=== PATIENT | female | born 1935 | race Caucasian/White ===

== ENCOUNTER 2017-03-08 14:30 | Inpatient (IN) ==
[2017-03-09] MEDS ORDERED: *HR* OxyCODONE Immed Rel 5 MG TABLET PO PRN (15:06)
--- NOTE | 2017-03-09 15:32 | Internal Med History&Physical ---
Date of Encounter: 03/09/17 Time of Encounter: 15:29 Assessment and Plan (1) Status post total hip replacement, left Current visit: No Status: Acute oxycodone increased to 10mg every 4 hrs as needed. will monitor for effectiveness. PT/OT as scheduled. (2) HTN (hypertension) Current visit: No Status: Chronic controlled with losartan. monitor BP Qualifiers: Hypertension type: essential hypertension Qualified Code(s): I10 - Essential (primary) hypertension (3) Constipation Current visit: Yes Status: Acute will order miralax and colace. Qualifiers: Constipation type: slow transit constipation Qualified Code(s): K59.01 - Slow transit constipation Internal Medicine - H&P: HPI Chief complaint: s/p left total hip replacement Admitted From: Home Plans for Post Hospital Care: Home History of present illness: Ms. Young is a 82 year old female presents to rehab unit for PT/OT after having left total knee replacement. daughter at bedside. plans to live with daughter after discharge. increased pain with movement to left hip. will increase oxycodone. c/o constipation. last BM 3 days ago. PMHx: arthritis of left hip, HTN. Past Med Surg Social Fam HX - Past Medical History Medical history: arthritis, hyperlipidemia, hypertension Psychiatric history: no psych history - Past Surgical History Surgical History: hysterectomy - Social History Smoking Status: Never smoker Smokeless Tobacco Status: No Alcohol use: occasionally Drug use: none Internal Medicine - H&P: Meds Aspirin Enteric Coated [Aspirin EC] 325 mg PO DAILY 21 Days #21 tablet. [Rx] Losartan/Hydrochlorothiazide [Hyzaar 100-12.5 Tablet] 1 tab PO QAM 03/06/17 [ History] [place]-3S/Dha/Epa/Fish Oil [Fish Oil 1,200 mg Softgel] 1 cap PO DAILY 03/06/17 [ History] OxyCODONE Immed Rel [Roxicodone 5 MG] 5 mg PO Q4HR PRN 03/09/17 [History] 3 Allergy/AdvReac Type Severity Reaction Status Date / Time ciprofloxacin [From Cipro] Allergy Swelling Verified 03/06/17 11:39 of Lip/Tongue/Throat Penicillins Allergy Rash Verified 03/06/17 11:39 Sulfa (Sulfonamide Allergy Vomiting Verified 03/06/17 11:39 Antibiotics) All Systems PM: A 10-system review of systems was performed and is negative for pertinent findings except as documented above in the HPI. - Constitutional Constitutional: no chills, no fever(s), no night sweats - EENT Eyes: no change in vision, no discharge, no pain, no photophobia Ears: no ear discharge, no ear pain, no tinnitus Nose, mouth and throat: no dysphagia, no nasal discharge, no neck pain, no sore throat - Cardiovascular Cardiovascular ROS IM: no chest pain, no diaphoresis, no dyspnea, no lightheadedness, no palpitations, no syncope - Respiratory Respiratory: no cough, no dyspnea, no wheezing, no excessive phlegm production - Gastrointestinal Gastrointestinal: no abdominal pain, no diarrhea, no hematemesis, no hematochezia, no melena, no nausea, no vomiting - Genitourinary Genitourinary: no change in urinary stream, no dysuria, no flank pain, no hematuria - Musculoskeletal Musculoskeletal ROS IM: no numbness, no tingling - Integumentary Integumentary IM: no rash, no unusual bruising - Neurological Neurological ROS: no confusion, no convulsions, no focal weakness, no numbness, no tingling, no tremor(s) - Hematologic/Lymphatic Hematologic/Lymphatic: no easy bruising - Constitutional Vitals: Temp Pulse Resp BP Pulse Ox 98.1 F 114 18 127/74 98 03/09/17 13:46 03/09/17 13:46 03/09/17 13:46 03/09/17 13:46 03/09/17 13:46 General appearance: Present: A&O X 3, pleasant, no acute distress, answers questions appropriately - Head Head exam: Present: atraumatic, normocephalic - Eye Eye exam: Present: PERRL, conjuntiva pink, sclera anicteric Pupils: Present: PERRL - Neck Neck exam general surgery: Present: supple, trachea midline. Absent: lymphadenopathy - Respiratory Respiratory exam: Present: CTAB. Absent: accessory muscle use, rales, rhonchi, wheezes - Cardiovascular Cardiovascular exam: Present: RRR, +S1, +S2. Absent: diastolic murmur, gallop, rubs, systolic murmur - GI/Abdominal GI/Abdominal exam: Present: normal bowel sounds, soft, no peritoneal signs. Absent: distended, tenderness - Extremities Exam Extremities exam: Present: warm, radial pulses palpable and symmetrical. Absent : calf tenderness, cyanotic, pedal edema Additional comments: left hip, incision well approximated. no drainage. no signs of infection. - Neurological Exam Neurological exam: Present: CN II-XII intact, oriented X3, no focal deficits. Absent: pronater drift, facial droop, speech deficit - Skin Skin exam: Present: dry, intact
[2017-03-09] MEDS: *HR* OxyCODONE Immed Rel 5 MG TABLET PO PRN (20:44)
[2017-03-10] MEDS: *HR* OxyCODONE Immed Rel 5 MG TABLET PO PRN ×5 (01:07→20:44)
[2017-03-10 06:48] LABS: Basophils % 0.3 %; Eosinophils # 0.1 K/mcL (0.0-0.6); Eosinophils % 0.7 %; Hematocrit 27.9 % (35.3-44.9); Hemoglobin 9.2 g/dL (11.5-15.4); Immature Granulocytes % 0.6 % (0-4); Lymphocytes % 22.1 %; Mean Corpuscular Hemoglobin 29.4 pg (28.0-33.3); Mean Corpuscular Volume 89.1 fL (83.0-100.0); Mean Platelet Volume 9.7 fL (9.4-12.4); Monocytes # 1.1 K/mcL (0.0-1.3); Monocytes % 12.2 %; Neutrophils # 5.8 K/mcL (1.6-8.9); Platelet Count 270 K/mcL (140-400); Red Blood Count 3.13 M/mcL (3.82-4.97); Red Cell Distribution Width 13.3 % (11.5-14.5); Segmented Neutrophils % 64.1 %
[2017-03-10 06:55] LABS: BUN/Creatinine Ratio 30 (6-26); Blood Urea Nitrogen 13 mg/dL (7-20); Calcium 8.6 mg/dL (8.6-10.8); Carbon Dioxide 30 mEq/L (19-29); Chloride 103 mEq/L (98-109); Glucose 92 mg/dL (70-99); Osmolality,Calculated 294 (280-300); Potassium 3.4 mEq/L (3.5-4.5); Sodium 142 mEq/L (136-145); eGFR For African Americans > 60 (> 60); eGFR For Non-African Americans > 60 (> 60)
[2017-03-10] MEDS: *HR* Enoxaparin 40 MG/0.4 ML SYRINGE SQ SCH (07:37)
[2017-03-10] MEDS: hydroCHLOROthiazide 25 MG TABLET PO SCH (08:33)
[2017-03-10] MEDS: Aspirin Enteric Coated 325 MG Tablet PO SCH (08:34)
[2017-03-10] MEDS: (Omega-3s/Dha/Epa/Fish Oil [Fish Oil 1,200 Mg Softgel PO SCH (08:35)
[2017-03-10] MEDS ORDERED: NON-FORMULARY MEDICATION 1 EACH EACH (Losartan/Hydrochlorothiazide [Hyzaar 100-12.5 Tablet PO SCH (09:00)
--- NOTE | 2017-03-10 12:04 | Internal Med Progress Note ---
Date of Encounter: 03/10/17 Time of Encounter: 12:02 - Assessment and plan (1) Status post total hip replacement, left Current Visit: No Status: Acute Assessment and plan: Surgical wounds appear intact and healing well with no infectious process noted. No limits noted to ROM or deformity to hip. Pt to continue on theapy. Pain well managed with oral meds. (2) HTN (hypertension) Current Visit: No Status: Chronic Assessment and plan: VS remains stable. Will continue on current meds. Qualifiers: Hypertension type: essential hypertension Qualified Code(s): I10 - Essential (primary) hypertension (3) Constipation Current Visit: Yes Status: Acute Assessment and plan: Pt c/o no BM over the last several days. Will give a Dulcolax supp now and increase her daily scheduled laxatives. Qualifiers: Constipation type: slow transit constipation Qualified Code(s): K59.01 - Slow transit constipation - Time Spent With Patient less than 15 minutes - Subjective Interval history: Patient appears relaxed and denies any current issues. States that her pain is tolerable with current pain meds. Denies any dyspnea. Denies any numbness or tingling to left leg - Constitutional Vitals: Temp Pulse Resp BP Pulse Ox 98.3 F 65 16 115/57 96 03/10/17 11:55 03/10/17 11:55 03/10/17 11:55 03/10/17 11:55 03/10/17 11:55 General appearance: Present: A&O X 3, pleasant, no acute distress, answers questions appropriately - Head Head exam: Present: atraumatic, normocephalic - Neck Neck exam general surgery: Present: supple, trachea midline. Absent: lymphadenopathy - Respiratory Respiratory exam: Present: CTAB. Absent: accessory muscle use, rales, rhonchi, wheezes - Cardiovascular Cardiovascular exam: Present: RRR, +S1, +S2. Absent: diastolic murmur, gallop, rubs, systolic murmur - GI/Abdominal GI/Abdominal exam: Present: normal bowel sounds, soft, no peritoneal signs. Absent: distended, tenderness - Extremities Exam Extremities exam: Present: normal capillary refill, warm, radial pulses palpable and symmetrical. Absent: calf tenderness, cyanotic, pedal edema Additional comments: left hip surgical incisions appear dry and intact. Distal cap refill is <3sec. Left leg is warm and without edema. - Neurological Exam Neurological exam: Present: CN II-XII intact, oriented X3, no focal deficits. Absent: pronater drift, facial droop, speech deficit - Skin Skin exam: Present: dry, intact Internal Medicine: Result - Labs CBC & Chem 7: 03/10/17 06:20 03/10/17 06:20 Labs: Short CBC 03/10/17 Range/Units 06:20 WBC 9.0 (4.3-11.1) K/mcL Hgb 9.2 L (11.5-15.4) g/dL Hct 27.9 L (35.3-44.9) % Plt Count 270 (140-400) K/mcL Neutrophils # 5.8 (1.6-8.9) K/mcL BMP 03/10/17 06:20 Sodium 142 Potassium 3.4 L Chloride 103 Carbon Dioxide 30 H BUN 13 Creatinine 0.43 L Glucose 92 Calcium 8.6 Consult Discharge Plan - Plan Referrals: Akin Seay, SCHOOL RESOURCE OFFICER [Primary Care Provider] -
[2017-03-10] MEDS: Sennosides 8.6 MG TABLET PO SCH (20:44)
[2017-03-11] MEDS: *HR* OxyCODONE Immed Rel 5 MG TABLET PO PRN ×4 (04:47→23:00)
[2017-03-11] MEDS: *HR* Enoxaparin 40 MG/0.4 ML SYRINGE SQ SCH (04:47)
[2017-03-11] MEDS: Aspirin Enteric Coated 325 MG Tablet PO SCH (09:13)
[2017-03-11] MEDS: Sennosides 8.6 MG TABLET PO SCH ×2 (09:13→23:00)
[2017-03-11] MEDS: hydroCHLOROthiazide 25 MG TABLET PO SCH (09:13)
[2017-03-11] MEDS: (Omega-3s/Dha/Epa/Fish Oil [Fish Oil 1,200 Mg Softgel PO SCH (09:14)
--- NOTE | 2017-03-11 11:26 | Internal Med Progress Note ---
Date of Encounter: 03/11/17 Time of Encounter: 11:24 - Assessment and plan (1) HTN (hypertension) Current Visit: No Status: Chronic Assessment and plan: - VS remains stable. - Will continue on current meds. Qualifiers: Hypertension type: essential hypertension Qualified Code(s): I10 - Essential (primary) hypertension (2) Status post total hip replacement, left Current Visit: No Status: Acute Assessment and plan: -Surgical wounds appear intact and healing - No limits noted to ROM or deformity to hip. - Pain well managed with oral meds and lidocain patch - PT/OT for at least couple of weeks (3) Constipation Current Visit: Yes Status: Acute Assessment and plan: - most likely secondary to narcotic use - Hypokalemia, mild can also complicate bowel transition - Reordered BMP, to check K and would supplement as needed - Suppositories will be given today along with any need to perform enema Qualifiers: Constipation type: slow transit constipation Qualified Code(s): K59.01 - Slow transit constipation (4) Hypokalemia Current Visit: Yes Status: Acute Assessment and plan: - unknown etiology, possible medication related, no GI loss - Recheck and supplement as needed - Time Spent With Patient 25 - 35 minutes - Subjective Interval history: pt had no complaints and reported that her left hip pain is very tolerable. She hasn't had a BM sin Monday now, but feels lots of activity in the abd. Apatite is intact, and indicated it was excelent. No SOB, no issues with urination and no JENNINGS. Has family involved and okay spending nereyda in rehab - Constitutional Vitals: Temp Pulse Resp BP Pulse Ox 98.4 F 93 16 124/69 95 03/11/17 07:27 03/11/17 07:27 03/10/17 19:20 03/11/17 07:27 03/11/17 07:27 General appearance: Present: A&O X 3, pleasant, no acute distress, answers questions appropriately - Head Head exam: Present: atraumatic, normocephalic - Eye Eye exam: Present: PERRL, conjuntiva pink, sclera anicteric Pupils: Present: PERRL - Neck Neck exam general surgery: Present: supple, trachea midline. Absent: lymphadenopathy - Respiratory Respiratory exam: Present: CTAB. Absent: accessory muscle use, rales, rhonchi, wheezes - Cardiovascular Cardiovascular exam: Present: RRR, +S1, +S2. Absent: diastolic murmur, gallop, rubs, systolic murmur - GI/Abdominal GI/Abdominal exam: Present: normal bowel sounds, soft, no peritoneal signs. Absent: distended, tenderness - Extremities Exam Extremities exam: Present: warm, radial pulses palpable and symmetrical. Absent : calf tenderness, cyanotic, pedal edema Additional comments: Left hip incision appeared intact, and dry. No signs of erythema - Neurological Exam Neurological exam: Present: no focal deficits. Absent: pronater drift, facial droop, speech deficit - Skin Skin exam: Present: dry, intact Internal Medicine: Result - Labs CBC & Chem 7: 03/10/17 06:20 03/10/17 06:20 Consult Discharge Plan - Plan Referrals: Akin Seay DRIP MOLDER [Primary Care Provider] -
[2017-03-11] MEDS: Bisacodyl 10 MG RECTAL SUPPOSITORY RC PRN (11:36)
[2017-03-11 15:03] LABS: Hematocrit 28.1 % (35.3-44.9); Hemoglobin 9.1 g/dL (11.5-15.4)
[2017-03-11 16:07] LABS: BUN/Creatinine Ratio 30 (6-26); Blood Urea Nitrogen 16 mg/dL (7-20); Calcium 8.5 mg/dL (8.6-10.8); Carbon Dioxide 32 mEq/L (19-29); Chloride 103 mEq/L (98-109); Glucose 105 mg/dL (70-99); Osmolality,Calculated 296 (280-300); Potassium 3.6 mEq/L (3.5-4.5); Sodium 142 mEq/L (136-145); eGFR For African Americans > 60 (> 60); eGFR For Non-African Americans > 60 (> 60)
[2017-03-12] MEDS: *HR* Enoxaparin 40 MG/0.4 ML SYRINGE SQ SCH (06:00)
[2017-03-12] MEDS: Aspirin Enteric Coated 325 MG Tablet PO SCH (09:04)
[2017-03-12] MEDS: hydroCHLOROthiazide 25 MG TABLET PO SCH (09:04)
--- NOTE | 2017-03-12 11:01 | Internal Med Progress Note ---
Date of Encounter: 03/12/17 Time of Encounter: 10:59 - Assessment and plan (1) HTN (hypertension) Current Visit: No Status: Chronic Assessment and plan: - VS remains stable. - Will continue on current meds. Qualifiers: Hypertension type: essential hypertension Qualified Code(s): I10 - Essential (primary) hypertension (2) Status post total hip replacement, left Current Visit: No Status: Acute Assessment and plan: -Surgical wounds appear intact and healing - No limits noted to ROM or deformity to hip. - Pain well managed with oral meds and lidocain patch - PT/OT for at least couple of weeks (3) Constipation Current Visit: Yes Status: Acute Assessment and plan: - most likely secondary to narcotic use, having BMs now after suppositories - Hypokalemia resolved Qualifiers: Constipation type: slow transit constipation Qualified Code(s): K59.01 - Slow transit constipation (4) Hypokalemia Current Visit: Yes Status: Acute Assessment and plan: - unknown etiology, possible medication related - Recheck showed 3.6, resolved - Time Spent With Patient less than 15 minutes - Subjective Interval history: pt had no complaints and reported that her left hip pain is very tolerable. - BM yesterday - Apatite is intact, and indicated it was excellent. - No SOB, no issues with urination and no JENNINGS. - Has family involved and okay spending nereyda in rehab Met dtr that was interested in hiring some help for at least three days to check on her mother - Constitutional Vitals: Temp Pulse Resp BP Pulse Ox 98.2 F 92 16 118/63 100 03/11/17 19:00 03/11/17 19:00 03/11/17 19:00 03/11/17 19:00 03/11/17 19:00 General appearance: Present: pleasant, no acute distress, answers questions appropriately - Head Head exam: Present: atraumatic, normocephalic - Eye Eye exam: Present: PERRL, conjuntiva pink, sclera anicteric Pupils: Present: PERRL - Neck Neck exam general surgery: Present: supple, trachea midline. Absent: lymphadenopathy - Respiratory Respiratory exam: Present: CTAB. Absent: accessory muscle use, rales, rhonchi, wheezes - Cardiovascular Cardiovascular exam: Present: RRR, +S1, +S2. Absent: diastolic murmur, gallop, rubs, systolic murmur - GI/Abdominal GI/Abdominal exam: Present: normal bowel sounds, soft, no peritoneal signs. Absent: distended, tenderness - Extremities Exam Extremities exam: Present: warm, radial pulses palpable and symmetrical. Absent : calf tenderness, cyanotic, pedal edema - Neurological Exam Neurological exam: Present: CN II-XII intact, oriented X3, no focal deficits. Absent: pronater drift, facial droop, speech deficit - Skin Skin exam: Present: dry, intact Internal Medicine: Result - Labs CBC & Chem 7: 03/11/17 14:50 03/11/17 14:50 Labs: Short CBC 03/11/17 Range/Units 14:50 Hgb 9.1 L (11.5-15.4) g/dL Hct 28.1 L (35.3-44.9) % BMP 03/11/17 14:50 Sodium 142 Potassium 3.6 Chloride 103 Carbon Dioxide 32 H BUN 16 Creatinine 0.53 L Glucose 105 H Calcium 8.5 L Consult Discharge Plan - Plan Referrals: Akin Seay, CIVIL PROCESS SERVER [Primary Care Provider] -
[2017-03-12] MEDS: *HR* OxyCODONE Immed Rel 5 MG TABLET PO PRN ×3 (11:08→21:35)
[2017-03-12] MEDS: Sennosides 8.6 MG TABLET PO SCH ×2 (13:24→21:34)
[2017-03-12] MEDS: (Omega-3s/Dha/Epa/Fish Oil [Fish Oil 1,200 Mg Softgel PO SCH (13:24)
[2017-03-13] MEDS: *HR* Enoxaparin 40 MG/0.4 ML SYRINGE SQ SCH (04:53)
[2017-03-13] MEDS: *HR* OxyCODONE Immed Rel 5 MG TABLET PO PRN ×5 (04:53→22:12)
[2017-03-13] MEDS: hydroCHLOROthiazide 25 MG TABLET PO SCH (09:24)
[2017-03-13] MEDS: Aspirin Enteric Coated 325 MG Tablet PO SCH (09:25)
[2017-03-13] MEDS: Sennosides 8.6 MG TABLET PO SCH ×2 (09:25→20:36)
[2017-03-13] MEDS: (Omega-3s/Dha/Epa/Fish Oil [Fish Oil 1,200 Mg Softgel PO SCH (09:26)
--- NOTE | 2017-03-13 14:19 | Internal Med Progress Note ---
Date of Encounter: 03/13/17 Time of Encounter: 14:17 - Assessment and plan (1) HTN (hypertension) Current Visit: No Status: Chronic Assessment and plan: - VS remains stable. - Will continue on current meds. Qualifiers: Hypertension type: essential hypertension Qualified Code(s): I10 - Essential (primary) hypertension (2) Status post total hip replacement, left Current Visit: No Status: Acute Assessment and plan: -Surgical wounds appear intact and healing - No limits noted to ROM or deformity to hip. - Pain well managed with oral meds and lidocain patch - PT/OT for at least couple of weeks (3) Constipation Current Visit: Yes Status: Acute Assessment and plan: - most likely secondary to narcotic use, having BMs now after suppositories - Hypokalemia resolved Qualifiers: Constipation type: slow transit constipation Qualified Code(s): K59.01 - Slow transit constipation (4) Hypokalemia Current Visit: Yes Status: Acute Assessment and plan: - unknown etiology, possible medication related - Recheck showed 3.6, resolved - Time Spent With Patient 25 - 35 minutes - Subjective Interval history: pt had no complaints and reported that her left hip pain is very tolerable. - BM regularly - Apatite is intact, and indicated it was excellent. - No SOB, no issues with urination and no JENNINGS. Met dtr that was interested in hiring some help for at least three days to check on her mother vs having her , and pt son in law behind in [place] as she packes for her to move to [place] - Constitutional Vitals: Temp Pulse Resp BP Pulse Ox 99.2 F 76 18 123/55 99 03/13/17 07:00 03/13/17 07:00 03/12/17 19:00 03/13/17 07:00 03/13/17 07:00 General appearance: Present: pleasant, no acute distress, answers questions appropriately - Head Head exam: Present: atraumatic, normocephalic - Eye Eye exam: Present: PERRL, conjuntiva pink, sclera anicteric Pupils: Present: PERRL - Neck Neck exam general surgery: Present: supple, trachea midline. Absent: lymphadenopathy - Respiratory Respiratory exam: Present: CTAB. Absent: accessory muscle use, rales, rhonchi, wheezes - Cardiovascular Cardiovascular exam: Present: RRR, +S1, +S2. Absent: diastolic murmur, gallop, rubs, systolic murmur - GI/Abdominal GI/Abdominal exam: Present: normal bowel sounds, soft, no peritoneal signs. Absent: distended, tenderness - Extremities Exam Extremities exam: Present: warm, radial pulses palpable and symmetrical. Absent : calf tenderness, cyanotic, pedal edema - Neurological Exam Neurological exam: Present: CN II-XII intact, oriented X3, no focal deficits. Absent: pronater drift, facial droop, speech deficit - Skin Skin exam: Present: dry, intact Internal Medicine: Result - Labs CBC & Chem 7: 03/11/17 14:50 03/11/17 14:50 Consult Discharge Plan - Plan Referrals: Akin Seay, COLOR EXPERT [Primary Care Provider] -
[2017-03-13] MEDS: Bisacodyl 10 MG RECTAL SUPPOSITORY RC PRN (15:11)
[2017-03-14] MEDS: *HR* OxyCODONE Immed Rel 5 MG TABLET PO PRN ×4 (05:19→20:21)
[2017-03-14] MEDS: *HR* Enoxaparin 40 MG/0.4 ML SYRINGE SQ SCH (05:19)
[2017-03-14] MEDS: Aspirin Enteric Coated 325 MG Tablet PO SCH (08:11)
[2017-03-14] MEDS: hydroCHLOROthiazide 25 MG TABLET PO SCH (08:12)
[2017-03-14] MEDS: (Omega-3s/Dha/Epa/Fish Oil [Fish Oil 1,200 Mg Softgel PO SCH (08:13)
[2017-03-14] MEDS: Sennosides 8.6 MG TABLET PO SCH ×2 (08:13→20:21)
--- NOTE | 2017-03-14 10:44 | Internal Med Progress Note ---
Date of Encounter: 03/14/17 Time of Encounter: 10:42 - Assessment and plan (1) Status post total hip replacement, left Current Visit: No Status: Acute Assessment and plan: -Surgical wounds appear intact and healing - No limits noted to ROM or deformity to hip. - Pain well managed with oral meds and lidocain patch - PT/OT continue (2) HTN (hypertension) Current Visit: No Status: Chronic Assessment and plan: - VS remains stable. - Will continue on current meds. Qualifiers: Hypertension type: essential hypertension Qualified Code(s): I10 - Essential (primary) hypertension (3) Constipation Current Visit: Yes Status: Acute Assessment and plan: - most likely secondary to narcotic use, having BMs now. continue miralax Qualifiers: Constipation type: slow transit constipation Qualified Code(s): K59.01 - Slow transit constipation - Time Spent With Patient less than 15 minutes - Subjective Interval history: doing well. pain controlled with current pain meds. bowels moving. appetite good, maintaining hydration. denies any complaints or needs at this time. - Constitutional Vitals: Temp Pulse Resp BP Pulse Ox 98.3 F 81 16 100/63 98 03/14/17 07:00 03/14/17 07:00 03/14/17 07:00 03/14/17 07:00 03/14/17 07:00 General appearance: Present: A&O X 3, pleasant, no acute distress, answers questions appropriately - Head Head exam: Present: atraumatic, normocephalic - Eye Eye exam: Present: PERRL, conjuntiva pink, sclera anicteric Pupils: Present: PERRL - Neck Neck exam general surgery: Present: supple, trachea midline. Absent: lymphadenopathy - Respiratory Respiratory exam: Present: CTAB. Absent: accessory muscle use, rales, rhonchi, wheezes - Cardiovascular Cardiovascular exam: Present: RRR, +S1, +S2. Absent: diastolic murmur, gallop, rubs, systolic murmur - GI/Abdominal GI/Abdominal exam: Present: normal bowel sounds, soft, no peritoneal signs. Absent: distended, tenderness - Extremities Exam Extremities exam: Present: warm, radial pulses palpable and symmetrical. Absent : calf tenderness, cyanotic, pedal edema Additional comments: nonpitting edema BLE - Neurological Exam Neurological exam: Present: CN II-XII intact, oriented X3, no focal deficits. Absent: pronater drift, facial droop, speech deficit - Skin Skin exam: Present: dry, intact Additional comments: left hip drsg dry and intact with slight edema. no signs of infection. Internal Medicine: Result - Labs CBC & Chem 7: 03/11/17 14:50 03/11/17 14:50 Consult Discharge Plan - Plan Referrals: Akin Seay, SHIRT MAKER [Primary Care Provider] -
[2017-03-15] MEDS: *HR* Enoxaparin 40 MG/0.4 ML SYRINGE SQ SCH (03:47)
[2017-03-15] MEDS: *HR* OxyCODONE Immed Rel 5 MG TABLET PO PRN ×3 (03:48→13:29)
[2017-03-15 07:26] VITALS: BP 103/58
[2017-03-15] MEDS: hydroCHLOROthiazide 25 MG TABLET PO SCH (08:40)
[2017-03-15] MEDS: Sennosides 8.6 MG TABLET PO SCH (08:40)
[2017-03-15] MEDS: Aspirin Enteric Coated 325 MG Tablet PO SCH (08:41)
[2017-03-15] MEDS: (Omega-3s/Dha/Epa/Fish Oil [Fish Oil 1,200 Mg Softgel PO SCH (08:41)
--- NOTE | 2017-03-15 13:15 | Discharge Summary ---
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 [Rx] Losartan/Hydrochlorothiazide [Hyzaar 100-12.5 Tablet] 1 tab PO QAM 03/06/17 [ History] [place]-3S/Dha/Epa/Fish Oil [Fish Oil 1,200 mg Softgel] 1 cap PO DAILY 03/06/17 [ History] OxyCODONE Immed Rel [Roxicodone 5 MG] 5 mg PO Q4HR PRN 03/09/17 [History] Allergies/Adverse Reactions: 3 Allergy/AdvReac Type Severity Reaction Status Date / Time ciprofloxacin [From Cipro] Allergy Swelling Verified 03/06/17 11:39 of Lip/Tongue/Throat Penicillins Allergy Rash Verified 03/06/17 11:39 Sulfa (Sulfonamide Allergy Vomiting Verified 03/06/17 11:39 Antibiotics) Date of admission: 03/09/17 14:31 Primary care physician: Akin Seay CNP Consults: 03/09/17 15:15 Consult to Occupational Therapy [CONS] Routine Comment: Evaluate, develop and implement POC Reason for Consult: eval and treat Consult to Physical Therapy [CONS] Routine Comment: Evaluate, develop and implement POC Reason for Consult: eval and treat Consult to Recreational Therapy [CONS] Routine Comment: Evaluate, develop and implement POC Consult to Business Process Architect [CONS] Routine Reason for SW Consult: discharge planning Discharging clinician: Naseem Johnson Anticipated date of discharge: 03/15/17 - Patient Status Disposition: Home Health Service Condition: Good Functional capacity at discharge: uses cane/walker Overall status at discharge: patient is progressing back to baseline - Discharge Instructions Follow Up With: Jacquelin Rosenberg PAC [Physician Shape Hand] - 03/16/17 9:30 am (follow up with [facility]) Akin Seay CNP [Primary Care Provider] - 03/23/17 11:10 am (follow up appointment) - Diet and Activity Activity: ambulate only with your walker Diet: advance to your usual diet Interval History: He was brought in for [facility] postoperatively for rehabilitation Hospital course: Ms. Young is a 82 year old female Patient's walking a walker do not household distances can be discharged home, her family today - Time Spent with Patient Total time spent providing and/or coordinating discharge services: Less than 30 minutes - Constitutional Vitals: Temp Pulse Resp BP Pulse Ox 98.2 F 79 16 103/58 97 03/15/17 07:25 03/15/17 07:25 03/15/17 07:25 03/15/17 07:25 03/15/17 07:25 General appearance: Present: A&O X 3, pleasant, no acute distress, answers questions appropriately - Head Head exam: Present: atraumatic, normal inspection, normocephalic - Neck Neck exam general surgery: Present: supple, trachea midline. Absent: lymphadenopathy - Respiratory Respiratory exam: Present: CTAB. Absent: accessory muscle use, rales, rhonchi, wheezes - Cardiovascular Cardiovascular exam: Present: RRR, +S1, +S2. Absent: diastolic murmur, gallop, rubs, systolic murmur
--- NOTE | 2017-03-15 13:18 | Physician Discharge Referral ---
Home Health/Hosp Referral Info Transfer to: Home Health Provider in Charge Post Discharge: PCP - Diagnosis (1) Arthritis of left hip Priority: Primary Status: Chronic (2) Closed fracture of left hip with malunion Priority: Primary Status: Chronic (3) Status post total hip replacement, left Priority: Primary Status: Acute - Respiratory Orders Smoking Cessation: Smoking cessation has been advised. For more information, call the [place] Tobacco Quit Line at 5-650-CAWQ-NOW. - Diet/Nutrition Diet/Nutrition Orders: Regular - Activity Activity Orders: Walker - Services Needed Following services are medically necessary services: Nursing, Physical Therapy - Transfer Medications Home Medications: Aspirin Enteric Coated [Aspirin EC] 325 mg PO DAILY 21 Days #21 tablet. [Rx] Losartan/Hydrochlorothiazide [Hyzaar 100-12.5 Tablet] 1 tab PO QAM 03/06/17 [ History] [place]-3S/Dha/Epa/Fish Oil [Fish Oil 1,200 mg Softgel] 1 cap PO DAILY 03/06/17 [ History] OxyCODONE Immed Rel [Roxicodone 5 MG] 5 mg PO Q4HR PRN 03/09/17 [History] Allergies/Adverse Reactions: 3 Allergy/AdvReac Type Severity Reaction Status Date / Time ciprofloxacin [From Cipro] Allergy Swelling Verified 03/06/17 11:39 of Lip/Tongue/Throat Penicillins Allergy Rash Verified 03/06/17 11:39 Sulfa (Sulfonamide Allergy Vomiting Verified 03/06/17 11:39 Antibiotics) Certification: Further, I certify that my clinical findings support that this patient is homebound (i.e. absences from home require considerable and taxing effort and are for medical reasons or catholic services or infrequently or short duration when for other reasons) because: Homebound Reason: Patient requires assistance of a person or device to safely leave home Attestation: My signature below is to certify that this patient is under my care and that I, or nurse practitioner, or a physician's assistant grocery store manager working with me, has a face-to -face encounter with this patient.
== END 2017-03-15 15:25 | disposition home health service (06) | DRG 566 ==
LOC: INPGRE 03-09 14:31
PROVIDERS: ADMIT Internal Medicine; ATTEND Internal Medicine